=== PATIENT | female | born 1965 | race Caucasian/White ===

== ENCOUNTER 2020-08-19 10:23 | Emergency (ER) | payer MEDICAID ==
[~2020-08-19] VITALS: Ht 175.3 cm; Wt 70.0 kg
[2020-08-19 10:30] VITALS: BP 136/67
[2020-08-19] MEDS ORDERED: HYDROcodone/acetaminophen 10/325mg tab PO ONE ×2 (11:20→11:30)
[2020-08-19] MEDS ORDERED: BUPIVAcaine/PF 2.5mg/ml (0.25%) 10ml vial SQ ONE (11:40)
[2020-08-19] MEDS ORDERED: BUPIVAcaine 0.5% W/EPI /PF 30ml vial SQ ONE (11:40)
[2020-08-19] MEDS ORDERED: HYDR-3965 PO (12:12)
== END 2020-08-19 12:38 | disposition home or self-care (01) ==
LOC: ER 10:25
DX: S52.611A Displaced fracture of right ulna styloid process, initial encounter for closed fracture (principal); W01.0XXA Fall on same level from slipping, tripping and stumbling without subsequent striking against object, initial encounter; Y93.89 Activity, other specified; Y92.89 Other specified places as the place of occurrence of the external cause; Y99.8 Other external cause status
CPT/HCPCS: 29105; 29125; 73100; 73110; 73130; 99284